=== PATIENT | female | born 1990 | race Caucasian/White ===

== ENCOUNTER 2016-12-22 07:22 | Outpatient (CLI) | payer MEDICAID ==
[~2016-12-22] VITALS: Ht 165.1 cm; Wt 62.7 kg
== END 2016-12-22 11:41 | disposition home or self-care (01) ==
LOC: LDOP 07:22
PROVIDERS: ATTEND Obstetrics & Gynecology
DX: O26.893 Other specified pregnancy related conditions, third trimester (principal); R10.9 Unspecified abdominal pain; Z3A.00 Weeks of gestation of pregnancy not specified
CPT/HCPCS: 36415; 59025; 81001; 82731; 99201; G0463

== ENCOUNTER 2017-02-20 13:49 | Outpatient (CLI) | payer MEDICAID ==
[~2017-02-20] VITALS: Ht 165.1 cm; Wt 70.0 kg
[2017-02-20 14:34] VITALS: BP 135/76
[2017-02-20 15:43] LABS: AMNI OBC PASS; AMNISURE NEGATIVE (NEGATIVE)
== END 2017-02-20 16:35 | disposition home or self-care (01) ==
LOC: LDOP 13:49
PROVIDERS: ATTEND Obstetrics & Gynecology
DX: O42.92 Full-term premature rupture of membranes, unspecified as to length of time between rupture and onset of labor (principal); Z3A.39 39 weeks gestation of pregnancy
CPT/HCPCS: 59025; 84112; 99211; G0463

== ENCOUNTER 2017-02-20 21:16 | Inpatient (IN) | payer MEDICAID ==
[~2017-02-20] VITALS: Ht 165.1 cm; Wt 70.0 kg
[2017-02-20] MEDS ORDERED: OXYTOCIN 30U/ 0.9% NaCL 500ML 500 ML IV ONE (21:42)
[2017-02-20] MEDS ORDERED: OXYTOCIN 30U/ 0.9% NaCL 500ML 500 ML IV PRN (21:42)
[2017-02-20] MEDS ORDERED: D5%-LACTATED RINGERS 1,000 ML IV SCH (21:42)
[2017-02-20] MEDS ORDERED: FENTANYL PF 100 MCG/2ML ONE (21:50)
[2017-02-20] MEDS: LACTATED RINGERS 1,000 ML IV SCH (21:53)
[2017-02-20] MEDS ORDERED: NEWBORN KIT ONE (21:55)
[2017-02-20] MEDS ORDERED: OXYTOCIN 30U/ 0.9% NaCL 500ML 500 ML ONE (21:55)
[2017-02-20] MEDS ORDERED: FENTANYL PF 100 MCG/2ML IV PRN (22:00)
[2017-02-20] MEDS ORDERED: FENTANYL PF 100 MCG/2ML IVPush PRN (22:00)
[2017-02-20] MEDS ORDERED: ONDANSETRON 2MG/ML, 2ML IVPush PRN (22:00)
[2017-02-20] MEDS ORDERED: SODIUM CITRATE/CITRIC ACID 30 ML UDC PO PRN (22:00)
[2017-02-20] MEDS ORDERED: METOCLOPRAMIDE 5 MG/ML, 2ML IVPush PRN (22:00)
[2017-02-20] MEDS ORDERED: TERBUTALINE 1 MG/ML, 1ML IVPush PRN (22:00)
[2017-02-20] MEDS ORDERED: PLEASE ENTER HEIGHT AND WEIGHT MC SCH (22:00)
[2017-02-20 22:22] LABS: HEMATOCRIT 35.7 % (34.6-47.8); HEMOGLOBIN 12.3 g/dL (11.7-16.4); WHITE BLOOD COUNT 12.9 x10^3/uL (3.4-10)
[2017-02-20] MEDS ORDERED: LACTATED RINGERS 1,000 ML IV SCH (22:44)
[2017-02-20] MEDS ORDERED: FENTANYL/BUPIV./NS/PF 250 ML EPIDCONT SCH (22:44)
[2017-02-20] MEDS ORDERED: BUPIVACAINE/PF 0.25% ONE (22:46)
[2017-02-20] MEDS ORDERED: FENTANYL/BUPIV./NS/PF 250 ML EPIDCONT ONE (22:47)
[2017-02-20] MEDS ORDERED: NALOXONE 0.4 MG/ML, 1ML IVPush PRN (23:00)
[2017-02-20] MEDS ORDERED: LACTATED RINGERS 1,000 ML IVBOLUS PRN (23:00)
[2017-02-20] MEDS ORDERED: EPHEDRINE 50 MG/ML, 1ML IVPush PRN (23:00)
[2017-02-21] MEDS ORDERED: EPHEDRINE 50 MG/ML, 1ML ONE (01:09)
[2017-02-21] MEDS ORDERED: OXYTOCIN 30U/ 0.9% NaCL 500ML 500 ML IV SCH (05:52)
[2017-02-21] MEDS: LACTATED RINGERS 1,000 ML IV SCH (05:55)
[2017-02-21] MEDS ORDERED: METHYLERGONOVINE 0.2 MG/ML IM PRN (06:00)
[2017-02-21] MEDS ORDERED: ONDANSETRON 2MG/ML, 2ML IV PRN (06:00)
[2017-02-21] MEDS ORDERED: MISOPROSTOL 200 MCG TABLET PO PRN (06:00)
[2017-02-21] MEDS ORDERED: IBUPROFEN 600 MG TABLET ONE (08:50)
[2017-02-21] MEDS: IBUPROFEN 600 MG TABLET PO PRN ×2 (08:51→16:29)
[2017-02-21 09:15] VITALS: BP 113/64
[2017-02-21] MEDS: OXYcodone/APAP 5/325MG TABLET PO PRN ×3 (09:45→20:55)
[2017-02-21] MEDS: DOCUSATE 100 MG CAPSULE PO PRN ×2 (09:45→20:55)
[2017-02-21] MEDS: PRENATAL VIT/IRON/FA 1 EACH TABLET PO SCH (09:45)
[2017-02-21 14:43] LABS: HEMATOCRIT 37.2 % (34.6-47.8); HEMOGLOBIN 12.6 g/dL (11.7-16.4); WHITE BLOOD COUNT 18.1 x10^3/uL (3.4-10)
[2017-02-21 15:35] VITALS: BP 109/58
[2017-02-21 20:25] VITALS: BP 116/64
[2017-02-22] VITALS: BP 131/81
[2017-02-22] MEDS: IBUPROFEN 600 MG TABLET PO PRN ×2 (02:55→11:26)
[2017-02-22] MEDS: OXYcodone/APAP 5/325MG TABLET PO PRN ×2 (02:55→11:27)
[2017-02-22 08:00] VITALS: BP 110/72
[2017-02-22] MEDS: DOCUSATE 100 MG CAPSULE PO PRN (08:50)
[2017-02-22] MEDS: PRENATAL VIT/IRON/FA 1 EACH TABLET PO SCH (08:50)
[2017-02-22] MEDS ORDERED: IBUP-1222 PO (11:05)
== END 2017-02-22 13:15 | disposition home or self-care (01) | DRG 775 ==
LOC: LDOP 21:16 → LDIP 21:35 → 2NW 02-21 08:56
PROVIDERS: ADMIT Obstetrics & Gynecology; ATTEND Obstetrics & Gynecology
PROC: 0HQ9XZZ Repair Perineum Skin, External Approach (ICD-10-PCS; principal; 2017-02-21)
PROC: 10E0XZZ Delivery of Products of Conception, External Approach (ICD-10-PCS; 2017-02-21)
PROC: 3E0R3BZ Introduction of Anesthetic Agent into Spinal Canal, Percutaneous Approach (ICD-10-PCS; 2017-02-21)
PROC: 00HU33Z Insertion of Infusion Device into Spinal Canal, Percutaneous Approach (ICD-10-PCS; 2017-02-21)
DX: O77.0 Labor and delivery complicated by meconium in amniotic fluid (principal); O99.344 Other mental disorders complicating childbirth; F41.0 Panic disorder [episodic paroxysmal anxiety]; O70.0 First degree perineal laceration during delivery; Z37.0 Single live birth
CPT/HCPCS: 36415; 85025; 86850; 86900; J2590; J3010; J7120

== ENCOUNTER 2019-02-08 16:08 | Outpatient (CLI) | payer MEDICAID ==
[~2019-02-08] VITALS: Ht 167.6 cm; Wt 61.3 kg
[~2019-02-08 16:08] MED LIST: IBUP-1222 PO
[2019-02-08 16:40] LABS: MICROSCOPIC NOT IND
[2019-02-08] MEDS ORDERED: TERBUTALINE 1 MG/ML, 1ML ONE (16:43)
[2019-02-08] MEDS ORDERED: TERBUTALINE 1 MG/ML, 1ML SQ ONE (17:00)
== END 2019-02-08 17:30 | disposition home or self-care (01) ==
LOC: LDOP 16:08
PROVIDERS: ATTEND Obstetrics & Gynecology
DX: O26.892 Other specified pregnancy related conditions, second trimester (principal); Z3A.26 26 weeks gestation of pregnancy
CPT/HCPCS: 76815; 81003; 87086; 99211; J3105; G0463

== ENCOUNTER 2019-02-16 16:13 | Outpatient (CLI) | payer MEDICAID ==
[~2019-02-16] VITALS: Ht 152.4 cm; Wt 61.4 kg
[2019-02-16 16:38] VITALS: BP 99/55
[2019-02-16 17:07] LABS: MICROSCOPIC INDICATED
== END 2019-02-16 19:14 | disposition home or self-care (01) ==
LOC: LDOP 16:13
PROVIDERS: ATTEND Obstetrics & Gynecology
DX: O26.892 Other specified pregnancy related conditions, second trimester (principal); R10.9 Unspecified abdominal pain; Z3A.27 27 weeks gestation of pregnancy
CPT/HCPCS: 59025; 81001; 87086; 99211; G0463

== ENCOUNTER 2019-03-05 11:57 | Outpatient (CLI) | payer MEDICAID ==
[~2019-03-05] VITALS: Ht 165.1 cm; Wt 62.3 kg
[2019-03-05 12:29] VITALS: BP 107/63
[2019-03-05 12:36] LABS: MICROSCOPIC NOT IND
== END 2019-03-05 14:33 | disposition home or self-care (01) ==
LOC: LDOP 11:57
PROVIDERS: ATTEND Obstetrics & Gynecology
DX: O26.893 Other specified pregnancy related conditions, third trimester (principal); R10.9 Unspecified abdominal pain; Z3A.30 30 weeks gestation of pregnancy
CPT/HCPCS: 59025; 81003; 87086; 99211; G0463

== ENCOUNTER 2019-03-15 10:53 | Outpatient (CLI) | payer MEDICAID ==
[2019-03-15 12:11] LABS: MICROSCOPIC INDICATED
== END 2019-03-15 14:00 | disposition home or self-care (01) ==
LOC: LDOP 10:53
PROVIDERS: ATTEND Obstetrics & Gynecology
DX: O62.4 Hypertonic, incoordinate, and prolonged uterine contractions (principal); Z3A.32 32 weeks gestation of pregnancy
CPT/HCPCS: 59025; 76815; 81001; 87086; 89060; 99211; G0463; Q0114

== ENCOUNTER 2019-03-29 07:47 | Outpatient (CLI) | payer MEDICAID ==
[~2019-03-29] VITALS: Ht 165.1 cm; Wt 65.4 kg
[2019-03-29 07:56] VITALS: BP 89/59
[2019-03-29 09:01] LABS: MICROSCOPIC INDICATED
[2019-03-29 09:24] LABS: CULTURE INDICATED? YES
[2019-03-29 10:00] LABS: AMPHETAMINE SCREEN, URINE Negative (Negative); BARBITURATE SCREEN, URINE Negative (Negative); BENZODIAZEPINE SCREEN, URINE Negative (Negative); CANNABINOID SCREEN, URINE Negative (Negative); COCAINE SCREEN, URINE Negative (Negative); METHADONE SCREEN, URINE Negative (Negative); OPIATE SCREEN, URINE Negative (Negative)
== END 2019-03-29 09:45 | disposition home or self-care (01) ==
LOC: LDOP 07:47
PROVIDERS: ATTEND Obstetrics & Gynecology
DX: O26.893 Other specified pregnancy related conditions, third trimester (principal); O62.8 Other abnormalities of forces of labor; Z3A.33 33 weeks gestation of pregnancy
CPT/HCPCS: 59025; 80307; 81001; 87086; 99211; G0463

== ENCOUNTER 2019-04-05 17:37 | Outpatient (CLI) | payer MEDICAID ==
[~2019-04-05] VITALS: Ht 165.1 cm; Wt 67.2 kg
[2019-04-05 17:50] VITALS: BP 110/59
[2019-04-05] MEDS ORDERED: BETAMETHASONE 6 MG/ML, 5ML IM ONE ×2 (18:45→19:00)
== END 2019-04-05 19:00 | disposition home or self-care (01) ==
LOC: LDOP 17:37
PROVIDERS: ATTEND Obstetrics & Gynecology
DX: O60.03 Preterm labor without delivery, third trimester (principal); Z3A.34 34 weeks gestation of pregnancy
CPT/HCPCS: 59025; 96372; 99211; J0702; G0463

== ENCOUNTER 2019-04-06 18:36 | Outpatient (CLI) | payer MEDICAID ==
[2019-04-06] MEDS ORDERED: BETAMETHASONE 6 MG/ML, 5ML IM ONE ×2 (18:41→19:00)
== END 2019-04-06 19:20 | disposition home or self-care (01) ==
LOC: LDOP 18:36
PROVIDERS: ATTEND Obstetrics & Gynecology
DX: O60.03 Preterm labor without delivery, third trimester (principal); Z3A.34 34 weeks gestation of pregnancy
CPT/HCPCS: 59025; 96372; 99211; J0702; G0463

== ENCOUNTER 2019-04-14 09:33 | Outpatient (CLI) | payer MEDICAID ==
[~2019-04-14] VITALS: Ht 157.5 cm; Wt 67.3 kg
[2019-04-14 10:23] VITALS: BP 112/60
== END 2019-04-14 10:56 | disposition home or self-care (01) ==
LOC: LDOP 09:33
PROVIDERS: ATTEND Student in an Organized Health Care Education/Training Program
DX: O26.893 Other specified pregnancy related conditions, third trimester (principal); R10.9 Unspecified abdominal pain; Z3A.35 35 weeks gestation of pregnancy
CPT/HCPCS: 59025; 99211; G0463

== ENCOUNTER 2019-04-25 13:16 | Outpatient (CLI) | payer MEDICAID ==
[~2019-04-25] VITALS: Ht 165.1 cm; Wt 65.4 kg
[2019-04-25 14:02] VITALS: BP 111/59
[2019-04-25 15:02] LABS: MICROSCOPIC INDICATED
[2019-04-25 18:22] LABS: AMPHETAMINE SCREEN, URINE Negative (Negative); BARBITURATE SCREEN, URINE Negative (Negative); BENZODIAZEPINE SCREEN, URINE Negative (Negative); CANNABINOID SCREEN, URINE Negative (Negative); COCAINE SCREEN, URINE Negative (Negative); METHADONE SCREEN, URINE Negative (Negative); OPIATE SCREEN, URINE Negative (Negative)
== END 2019-04-25 16:30 | disposition home or self-care (01) ==
LOC: LDOP 13:16
PROVIDERS: ATTEND Obstetrics & Gynecology
DX: O36.8130 Decreased fetal movements, third trimester, not applicable or unspecified (principal); Z3A.37 37 weeks gestation of pregnancy
CPT/HCPCS: 59025; 76819; 80307; 81001; 87086; 99211; G0463

== ENCOUNTER 2019-05-03 23:24 | Outpatient (CLI) | payer MEDICAID ==
[~2019-05-03] VITALS: Ht 165.1 cm; Wt 65.0 kg
[2019-05-03 23:49] VITALS: BP 111/64
== END 2019-05-04 00:50 | disposition home or self-care (01) ==
LOC: LDOP 23:24
PROVIDERS: ATTEND Obstetrics & Gynecology
DX: O62.9 Abnormality of forces of labor, unspecified (principal); Z3A.38 38 weeks gestation of pregnancy
CPT/HCPCS: 59025; 99211; G0463

== ENCOUNTER 2019-05-09 06:20 | Inpatient (IN) | payer MEDICAID ==
[~2019-05-09] VITALS: Ht 165.1 cm; Wt 65.9 kg
[2019-05-09] MEDS ORDERED: D5%-LACTATED RINGERS 1,000 ML IV SCH (06:23)
[2019-05-09] MEDS ORDERED: OXYTOCIN 30U/ 0.9% NaCL 500ML 500 ML IV ONE (06:23)
[2019-05-09] MEDS ORDERED: OXYTOCIN 30U/ 0.9% NaCL 500ML 500 ML IV PRN (06:23)
[2019-05-09] MEDS ORDERED: FENTANYL PF 100 MCG/2ML IVPush PRN (06:30)
[2019-05-09] MEDS ORDERED: FENTANYL PF 100 MCG/2ML IV PRN (06:30)
[2019-05-09] MEDS ORDERED: ONDANSETRON 2MG/ML, 2ML IVPush PRN (06:30)
[2019-05-09] MEDS ORDERED: TERBUTALINE 1 MG/ML, 1ML SQ PRN (06:30)
[2019-05-09] MEDS ORDERED: TERBUTALINE 1 MG/ML, 1ML IVPush PRN (06:30)
[2019-05-09] MEDS ORDERED: SODIUM CITRATE/CITRIC ACID 30 ML UDC PO PRN (06:30)
[2019-05-09] MEDS: LACTATED RINGERS 1,000 ML IV SCH ×2 (06:43→11:05)
[2019-05-09 06:48] VITALS: BP 101/56
[2019-05-09 07:03] LABS: BASOPHILS # (AUTO) 0.02 x10^3/uL (0-0.1); BASOPHILS % (AUTO) 0 % (0-1); EOSINOPHILS # (AUTO) 0.09 x10^3/uL (0-0.4); EOSINOPHILS % (AUTO) 1 % (1-7); LYMPHOCYTES # (AUTO) 1.31 x10^3/uL (1-3.4); LYMPHOCYTES % (AUTO) 18 % (22-44); MD NO; MEAN CORPUSCULAR HGB CONC 32.8 g/dL (32.4-35.8); MEAN CORPUSCULAR VOLUME 97.4 fL (80-100); MEAN PLATELET VOLUME 7.7 fL (7.4-10.4); MONOCYTES # (AUTO) 0.61 x10^3/uL (0.2-0.8); MONOCYTES % (AUTO) 8 % (2-9); NEUTROPHILS # (AUTO) 5.19 x10^3/uL (1.8-6.8); NEUTROPHILS % (AUTO) 72 % (42-75); PLATELET COUNT 208 x10^3/uL (130-400); RED BLOOD COUNT 4.01 x10^6/uL (3.82-5.3); RED CELL DISTRIBUTION WIDTH 14.2 % (9.6-15.2)
[2019-05-09] MEDS ORDERED: PREN-3 PO (07:07)
[2019-05-09] MEDS ORDERED: FENTANYL/BUPIV./NS/PF 250 ML EPIDCONT SCH ×2 (07:11→09:08)
[2019-05-09] MEDS ORDERED: LIDOCAINE 1%, 20ML ONE (07:18)
[2019-05-09] MEDS ORDERED: MISOPROSTOL 200 MCG TABLET ONE (07:18)
[2019-05-09] MEDS ORDERED: OXYTOCIN 30U/ 0.9% NaCL 500ML 500 ML ONE (07:18)
[2019-05-09] MEDS ORDERED: FENTANYL PF 100 MCG/2ML ONE (07:39)
[2019-05-09] MEDS ORDERED: FENTANYL PF 500 MCG, BUPIVACAINE/PF 0.5%, 30ML 62.5 ML in SODIUM CHLORIDE 0.9% 177.5 ML EPIDCONT SCH (09:00)
[2019-05-09] MEDS ORDERED: BUPIVACAINE 0.25% ONE (09:03)
[2019-05-09] MEDS ORDERED: LIDOCAINE/PF 1.5% EPI 1:200K, 10 ML ONE (09:03)
[2019-05-09] MEDS ORDERED: LACTATED RINGERS 1,000 ML IV SCH (09:08)
[2019-05-09] MEDS ORDERED: NALOXONE 0.4 MG/ML, 1ML IVPush PRN (09:30)
[2019-05-09] MEDS ORDERED: LACTATED RINGERS 1,000 ML IVBOLUS PRN (09:30)
[2019-05-09] MEDS ORDERED: EPHEDRINE 50 MG/ML, 1ML IVPush PRN (09:30)
[2019-05-09] MEDS ORDERED: NEWBORN KIT ONE (10:02)
[2019-05-09] MEDS ORDERED: OXYTOCIN 30U/ 0.9% NaCL 500ML 500 ML IV SCH (12:42)
[2019-05-09] MEDS ORDERED: SIMETHICONE 80 MG CHEW TAB PO PRN (13:00)
[2019-05-09] MEDS ORDERED: HYDROcodone/APAP 5/325 TABLET PO PRN (13:00)
[2019-05-09] MEDS ORDERED: IBUPROFEN 600 MG TABLET ONE (13:41)
[2019-05-09] MEDS: IBUPROFEN 600 MG TABLET PO PRN ×2 (13:44→20:02)
[2019-05-09 14:05] VITALS: BP 98/56
[2019-05-09] MEDS: HYDROcodone/APAP 5/325 TABLET PO PRN ×2 (16:12→20:03)
[2019-05-09 19:05] VITALS: BP 95/53
[2019-05-09 19:41] LABS: BASOPHILS # (AUTO) 0.03 x10^3/uL (0-0.1); BASOPHILS % (AUTO) 0 % (0-1); EOSINOPHILS # (AUTO) 0.06 x10^3/uL (0-0.4); EOSINOPHILS % (AUTO) 0 % (1-7); LYMPHOCYTES # (AUTO) 1.47 x10^3/uL (1-3.4); LYMPHOCYTES % (AUTO) 11 % (22-44); MD NO; MEAN CORPUSCULAR HEMOGLOBIN 32.3 pg (27.0-34.8); MEAN CORPUSCULAR HGB CONC 33.6 g/dL (32.4-35.8); MEAN PLATELET VOLUME 7.6 fL (7.4-10.4); MONOCYTES # (AUTO) 0.92 x10^3/uL (0.2-0.8); MONOCYTES % (AUTO) 7 % (2-9); NEUTROPHILS # (AUTO) 11.13 x10^3/uL (1.8-6.8); NEUTROPHILS % (AUTO) 82 % (42-75); PLATELET COUNT 202 x10^3/uL (130-400); RED CELL DISTRIBUTION WIDTH 13.8 % (9.6-15.2)
[2019-05-09] MEDS: DOCUSATE 100 MG CAPSULE PO PRN (20:01)
[2019-05-10] VITALS: BP 121/79
[2019-05-10 04:30] VITALS: BP 117/74
[2019-05-10] MEDS: IBUPROFEN 600 MG TABLET PO PRN ×2 (04:47→11:03)
[2019-05-10] MEDS: HYDROcodone/APAP 5/325 TABLET PO PRN (04:50)
[2019-05-10 08:10] VITALS: BP 101/66
[2019-05-10] MEDS ORDERED: PRENATAL VIT/IRON/FA 1 EACH TABLET PO SCH (09:00)
[2019-05-10] MEDS: DOCUSATE 100 MG CAPSULE PO PRN (11:03)
[2019-05-10] MEDS ORDERED: IBUP-1222 PO (11:20)
[2019-05-10] MEDS ORDERED: DOCU-131 PO (11:21)
== END 2019-05-10 13:25 | disposition home or self-care (01) | DRG 807 ==
LOC: LDIP 06:20 → 2NW 13:55
PROVIDERS: ADMIT Obstetrics & Gynecology; ATTEND Obstetrics & Gynecology
PROC: 10E0XZZ Delivery of Products of Conception, External Approach (ICD-10-PCS; principal; 2019-05-09)
PROC: 10907ZC Drainage of Amniotic Fluid, Therapeutic from Products of Conception, Via Natural or Artificial Opening (ICD-10-PCS; 2019-05-09)
PROC: 3E033VJ Introduction of Other Hormone into Peripheral Vein, Percutaneous Approach (ICD-10-PCS; 2019-05-09)
DX: O80 Encounter for full-term uncomplicated delivery (principal); Z37.0 Single live birth; Z3A.39 39 weeks gestation of pregnancy
CPT/HCPCS: 36415; 82803; 85025; 86592; 86850; 86900; 87806; G0378; J3010; G0475; J2590; J7120